=== PATIENT | male | born 1995 | race Two or more races ===

== ENCOUNTER 2025-07-01 08:15 | Emergency (ER) | payer OTHER ==
[~2025-07-01] VITALS: Ht 175.3 cm; Wt 90.8 kg
--- NOTE | 2025-07-01 08:48 | ED.PDOC ---
HPI Comments 30 y/o M, with PMHx of alcohol and polysubstance abuse presents to the ED for CC of chest pain. Patient states, he has been experiencing generalized chest pain with associated symptoms of abdominal pain onset, yesterday (06/30/25). Patient reports, that he has been using methamphetamine with alcohol for the past x3days and usually has no appetite while using illicit drugs. At this time patient c/o of additional bilateral arm numbness. Patient denies shortness of breath, h eadache, nausea, vomiting, or blurred vision. No other symptoms or modifying factors are present at this time. Chief Complaint: Chest Pain Time Seen by MD: 08:40 Reviewed Notes: Nurses Notes, Medications, Allergies Allergies: Coded Allergies: NO KNOWN ALLERGIES (Unverified , 07/01/25) Mode of Arrival: Ambulatory Severity: Moderate Timing: Days Duration: Since onset Prehospital treatment: None Location: Chest (R), Chest (L), Substernal Radiation: No Radiation Onset: At Rest Cardiac Risk Factors: Drugs PE Risk Factors: None History of: None Modifying Factors: Nothing Associated Signs and Symptoms: Abdominal Pain Past Medical History PAST MEDICAL HISTORY: Denies Surgical History: Denies all surgeries Family History Family History: Unknown Social History Smoker: Non-Smoker Alcohol: Heavy Drugs: Marijuana, Methamphetamine Lives In: Home Constitutional: denies: chills, diaphoresis, fatigue, fever, malaise, sweats, weakness, others EENTM: denies: blurred vision, double vision, ear bleeding, ear discharge, ear drainage, ear pain, ear ringing, eye pain, eye redness, hearing loss, mouth pain, mouth swelling, nasal discharge, nose bleeding, nose congestion, nose pain, photophobia, tearing, throat pain, throat swelling, voice changes, others Respiratory: denies: cough, hemoptysis, orthopnea, SOB at rest, shortness of breath, SOB with excertion, stridor, wheezing, others Cardiovascular: reports: chest pain; denies: dizzy spells, diaphoresis, Dyspnea on exertion, edema, irregular heart beat, left arm pain, lightheadedness, palpitations, PND, syncope, others Gastrointestinal: reports: abdominal pain; denies: abdomen distended, blood streaked bowels, constipated, diarrhea, dysphagia, difficulty swallowing, hematemesis, melena, nausea, poor appetite, poor fluid intake, rectal bleeding, rectal pain, vomiting, others Genitourinary: denies: burning, dysuria, flank pain, frequency, hematuria, incontinence, penile discharge, penile sore, pain, testicle pain, testicle swelling, urgency, others Neurological: reports: numbness (bilateral arm); denies: dizziness, fainting, headache, left sided numbness, left sided weakness, paresthesia, pre-existing deficit, right sided numbness, right sided weakness, seizure, speech problems, tingling, tremors, weakness, others Musculoskeletal: denies: back pain, gout, joint pain, joint swelling, muscle pain, muscle stiffness, neck pain, others Integumetry: denies: bruises, change in color, change in hair/nails, dryness, laceration, lesions, lumps, rash, wounds, others Allergic/Immunocompromised: denies: Difficulty Healing, Frequent Infections, Hives, Itching, others Hematologic/Lymphatic: denies: anemia, blood clots, easy bleeding, easy bruising, swollen glands, others Endocrine: denies: excessive hunger, excessive sweating, excessive thirst, excessive urination, flushing, intolerance to cold, intolerance to heat, unexplained weight gain, unexplained weight loss, others Psychiatric: denies: anxiety, bipolar disorder, depression, hopeless, panic disorder, schizophrenia, sleepless, suicidal, others All Other Systems: Reviewed and Negative Physical Exam General Appearance: No Apparent Distress, Normal HEENT: Normal ENT Inspection, Pharynx Normal Neck: Full Range of Motion, Non-Tender, Normal, Normal Inspection Respiratory: Chest Non-Tender, Lungs Clear, No Accessory Muscle Use, No Respiratory Distress, Normal Breath Sounds Cardiovascular: No Edema, No Murmur, No Gallop, Normal Peripheral Pulses, Regular Rate/Rhythm Breast Exam: Deferred Gastrointestinal: No Organomegaly, Non Tender, No Pulsatile Mass, Normal Bowel Sounds, Soft Genitalia: Deferred Pelvic: Deferred Rectal: Deferred Extremities: No calf tenderness, Normal capillary refill, Normal inspection, Normal range of motion, Non-tender, No pedal edema Musculoskeletal : Apperance: Normal Neurologic: Alert, 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 Was a procedure done?: No CP Differential Dx Differential Diagnosis: Anxiety / Panic Attack, Other (drug toxicity ) X-Ray, Labs, Meds, VS Vital Signs Date Time Temp Pulse Resp B/P (MAP) Pulse Ox O2 Delivery O2 Flow Rate FiO2 07/01/25 10:04 97.3 105 18 125/86 (99) 99 97.3 07/01/25 09:19 99 07/01/25 08:26 98 07/01/25 08:18 97.8 98 18 127/84 100 97.8 Lab Test 07/01/25 10:05 07/01/25 09:00 Range/Units Troponin I High Sensitivity < 3 L < 3 L </=54 ng/L White Blood Count 7.8 4.4-10.8 10^3/uL Red Blood Count 5.69 4.5-5.90 10^6/uL Hemoglobin 17.5 13.5-17.5 g/dL Hematocrit 49.2 41.0-53.0 % Mean Corpuscular Volume 86.5 80.0-100.0 fL Mean Corpuscular Hemoglobin 30.7 28.0-32.0 pg Mean Corpuscular Hemoglobin Concent 35.5 32.0-36.0 g/dL Red Cell Distribution Width 13.8 11.8-14.3 % Platelet Count 289 140-450 10^3/uL Mean Platelet Volume 8.0 6.9-10.8 fL Neutrophils (%) (Auto) 64.0 37.0-80.0 % Lymphocytes (%) (Auto) 23.6 10.0-50.0 % Monocytes (%) (Auto) 11.8 0.0-12.0 % Eosinophils (%) (Auto) 0.2 0.0-7.0 % Basophils (%) (Auto) 0.4 0.0-2.0 % Neutrophils # (Auto) 5.0 1.6-8.6 10 ^3/uL Lymphocytes # (Auto) 1.8 0.4-5.4 10 ^3/uL Monocytes # (Auto) 0.9 0-1.3 10 ^3/uL Eosinophils # (Auto) 0 0-0.8 10 ^3/uL Basophils # (Auto) 0 0-0.2 10 ^3/uL Nucleated Red Blood Cells 0.2 % Sodium Level 139 136-145 mmol/L Potassium Level 3.7 3.5-5.1 mmol/L Chloride Level 100 98-107 mmol/L Carbon Dioxide Level 22 20-31 mmol/L Anion Gap 17 H 5-15 Blood Urea Nitrogen 6 L 9-23 mg/dL Creatinine 0.78 0.700-1.30 mg/dL Glomerular Filtration Rate Calc 124 >90 mL/min BUN/Creatinine Ratio 7.7 L 10.0-20.0 Serum Glucose 79 74-106 mg/dL Calcium Level 10.1 8.7-10.4 mg/dL [place] [address] Ph: [phone] DIAGNOSTIC IMAGING Diagnostic Imaging Report : [id number] Signed PATIENT: CHAZ ROCKOACCT: [id number] UNIT: [id number] : 1995 LOC: ER ROOM / BED: / AGE / SEX: 30 / M ADM STATUS: REG ER SERVICE 2 ORDERING PHYSICIAN: MITALI HERNANDEZ MD PROCEDURE(s): CXRP - CHEST PORTABLE REASON: chest pain ORDER NUMBER(s): [id number], ACCESSION NUMBER(s): [id number] INDICATION: chest pain TECHNIQUE: Frontal view of the chest. COMPARISON: None FINDINGS: . The heart and mediastinal contours are grossly unremarkable. There is no evidence of pleural disease. The lungs are clear. The bony structures of the chest are intact without fracture. IMPRESSION: 1. No evidence of acute disease. ATED BY: ABRAHAN ARANDA MD DICTATED DATE/TIME: 07/01/25912 SIGNED BY: ABRAHAN ARANDA MD SIGNED DATE/TIME: 07/01/25912 CC: Time of 1ST Reevaluation: 09:10 Reevaluation 1ST: Unchanged Patient Education/Counseling: Diagnosis, Treatment Family Education/Counseling: No Family Present SEPSIS Sepsis Screen Date sepsis recognized/suspect: Jul 01, 2025 Time Sepsis recognized/suspect: 0822 Recent Procedure: No On Antibiotic Therapy: No Respiratory Rate >20: No Heart Rate >90: No Temp<36 C (96.8 F) or >38.3 C: No SBP <90 or MAP <65 mmHG: No New Acute Mental Status Change: No Is the patient on CPAP, BIPAP,: No Physician Orders Electrocardigram (07/01/25 08:26) Electrocardigram (07/01/25 09:26) Electrocardigram (07/01/25 11:26) Chest Portable (07/01/25 08:43) Troponin-I Hs (07/01/25 11:43) Vital Signs Date Time Temp Pulse Resp B/P (MAP) Pulse Ox O2 Delivery O2 Flow Rate FiO2 07/01/25 10:04 97.3 105 18 125/86 (99) 99 97.3 07/01/25 09:19 99 07/01/25 08:26 98 07/01/25 08:18 97.8 98 18 127/84 100 97.8 Laboratory Tests Test 07/01/25 09:00 White Blood Count 7.8 10^3/uL (4.4-10.8) Departure 1 Departure Time of Disposition: 10:35 (Patient presented with chest pain that was concerning for possible STEMI, ACS, PE, Pneumonia, Muscle Strain, COPD, Dissection. Data: 1. I ordered and reviewed the result of at least 3 labs including a CBC, BMP, and Troponin. 2. I independently interpreted the following tests: EKG which shows normal sinus rhythm and Chest X-ray which shows a benign chest.Risk:This patient presented with a high risk of morbidity due to further diagnostic testing or treatment and may suffer from an acute cardiac or respiratory disorder. After review of all the data patient is unlikely to have a pe , dissection, and is low risk for acs. Patient is stable at this time.Workup so far is benign and patient will be discharged with outpatient followup. ) Impression: Primary Impression: Acute chest pain Additional Impression: Polysubstance abuse Disposition: HOME / SELF CARE / HOMELESS Condition: Stable Additional Instructions: You presented today with chest pain. Your workup today was benign including labs, troponin, EKG, chest x-ray. Your pain may be from musculoskeletal strain, acid reflux, anxiety, or many other factors. It is important to follow up with your regular doctor within 1 week. If your symptoms worsen or you have any other concerns please return to the emergency room. Discharged With: Self Critical Care Note Critical Care Time?: No Stability Stability form required: No Heart Score Heart Score: Heart Score Response (Comments) Value History N/A 0 EKG N/A 0 Age N/A 0 Risk Factors N/A 0 Troponin N/A 0 Total 0 I personally scribed for MITALI HERNANDEZ MD ([email or web address]) on 07/01/25 at 08:48. Electronically submitted by Hattie Pan ([email or web address]). I personally scribed for MITALI HERNANDEZ MD ([email or web address]) on 07/01/25 at 08:58. Electronically submitted by Hattie Pan ([email or web address]). I personally scribed for MITALI HERNANDEZ MD ([email or web address]) on 07/01/25 at 10:02. Electronically submitted by Hattie Pan ([email or web address]). MITALI HERNANDEZ MD Jul 01, 2025 08:48
--- NOTE | 2025-07-01 09:15 | DVH ---
INDICATION: chest pain TECHNIQUE: Frontal view of the chest. COMPARISON: None FINDINGS: . The heart and mediastinal contours are grossly unremarkable. There is no evidence of pleural disea se. The lungs are clear. The bony structures of the chest are intact without fracture. IMPRESSION: 1. No evidence of acute disease.
[2025-07-01 09:34] LABS: Hematocrit 49.2 % (41.0-53.0); Hemoglobin 17.5 g/dL (13.5-17.5); Mean Corpuscular Hemoglobin 30.7 pg (28.0-32.0); Mean Corpuscular Volume 86.5 fL (80.0-100.0); Nucleated Red Blood Cells % 0.2 %
[2025-07-01 09:41] LABS: Anion Gap 17 (5-15); Carbon Dioxide 22 mmol/L (20-31); Chloride 100 mmol/L (98-107); Potassium 3.7 mmol/L (3.5-5.1); Sodium 139 mmol/L (136-145)
[2025-07-01 09:42] LABS: Calcium 10.1 mg/dL (8.7-10.4)
[2025-07-01 09:47] LABS: BUN/Creatinine Ratio 7.7 (10.0-20.0); Blood Urea Nitrogen 6 mg/dL (9-23); Glucose 79 mg/dL (74-106)
[2025-07-01 10:04] VITALS: BP 125/86; PULSE 105; RESP 18; TEMP 97.3; O2SAT 99
--- NOTE | 2025-07-02 10:48 | ECG ---
[facility] Test Date: 2025-07-01 Test Time: 08:24:12 Pat Name: CHAZ ROCK Department: ED Room: Gender: M Sprayer Hand: JONATHAN : 1995 Requested By: MITALI HERNANDEZ Order Number: [id number] Reading MD: Rafael Mena Measurements Intervals [place] Rate: 98 P: -24 LA: 121 QRS: 28 QRSD: 90 T: 28 QT: 389 QTc: 497 Interpretive Statements Sinus rhythm Prolonged QT interval Electronically Signed On 07-03-2025 16:21:01 PDT by Rafael Mena Please click the below link to view image of tracing.
--- NOTE | 2025-07-02 11:55 | ECG ---
[facility] Test Date: 2025-07-01 Test Time: 09:19:05 Pat Name: CHAZ ROCK Department: ED Room: Gender: Monotype Operator: mikayla : 1995 Requested By: MITALI HERNANDEZ Order Number: [id number] Reading MD: Rafael Mena Measurements Intervals [place] Rate: 99 P: -5 TN: 123 QRS: 38 QRSD: 88 T: 44 QT: 383 QTc: 492 Interpretive Statements Sinus rhythm Prolonged QT interval Electronically Signed On 07-03-2025 16:21:17 PDT by Rafael Mena Please click the below link to view image of tracing.
== END 2025-07-01 11:39 | disposition home or self-care (01) ==
LOC: ER 08:15
DX: R07.89 Other chest pain (principal); F19.10 Other psychoactive substance abuse, uncomplicated; Z79.899 Other long term (current) drug therapy
CPT/HCPCS: 36415; 71045; 80048; 84484; 85025; 93005